=== PATIENT | male | born 1975 | race Two or more races ===

== ENCOUNTER 2019-06-22 12:22 | Emergency (ER) | payer OTHER ==
[~2019-06-22] VITALS: Ht 160 cm; Wt 98.0 kg
--- NOTE | 2019-06-22 12:32 | NUR ---
SERENA LYNN 38 From Home "Was in last couple days for rectal bleed Recently discharged today while going to [facility]- felt weak/near fainting/dizzy" pt awake, alert,. -sob noted, vss, pending md [facility]
[2019-06-22] MEDS ORDERED: IV NS 0.9% 1,000 ML BAG IV ONE (13:30)
[2019-06-22 13:46] LABS: BASOPHILS # (AUTO) 0.1 /CMM (0.0-0.2); BASOPHILS % (AUTO) 0.6 % (0.0-2.0); MEAN CORPUSCULAR HGB CONC 33 g/dl (31.0-36.0); MONOCYTES # (AUTO) 0.5 /CMM (0.1-1.30); NEUTROPHILS # (AUTO) 7.4 /CMM (1.8-8.9); PLATELET COUNT (AUTO) 183 /CMM (150-450)
[2019-06-22 13:48] LABS: EOSINOPHILS % (AUTO) 0.3 % (0.0-6.0); LYMPHOCYTES # (AUTO) 1.8 /CMM (0.8-4.8); LYMPHOCYTES % (AUTO) 18.5 % (20.0-44.0); MEAN CORPUSCULAR VOLUME 93 fL (80-96); MONOCYTES % (AUTO) 4.7 % (2.0-12.0); NEUTROPHILS % (AUTO) 75.9 % (43.0-81.0); RED BLOOD CELL COUNT(AUTO) 2.17 MIL/uL (4.5-6.0); WHITE BLOOD COUNT (AUTO) 9.8 K/uL (4.3-11.0)
[2019-06-22 13:49] LABS: HEMATOCRIT 20 % (39-51)
[2019-06-22 13:50] LABS: HEMOGLOBIN 6.7 g/dL (13.5-17.5)
[2019-06-22 13:53] LABS: CALCIUM, SERUM 7.7 mg/dL (8.5-10.1); CREATININE 0.9 mg/dL (0.6-1.3); POTASSIUM 4.4 mmol/L (3.5-5.1)
[2019-06-22 13:59] LABS: ALBUMIN 2.8 g/dL (3.4-5.0); BILIRUBIN,TOTAL 0.3 mg/dL (0.2-1.0); TOTAL PROTEIN, SERUM 5.6 g/dL (6.4-8.2)
--- NOTE | 2019-06-22 14:46 | NUR ---
DR. BELL CALLED FROM [facility]. PT WILL BE TRANSFERED. AUTHORIZATION NUMBER [phone].
[2019-06-22 15:14] LABS: EOSINOPHILS % (MANUAL) 1 % (0-4); LYMPHOCYTES % (MANUAL) 22 % (16-48); MONOCYTES % (MANUAL) 3 % (0-11.0); NEUTROPHILS % (MANUAL) 74 (42-76)
--- NOTE | 2019-06-22 16:43 | NUR ---
[facility] CALLED. PT WILL BE GOING TO [facility] ROOM 5109-A. NUMBER FOR REPORT [phone]. DR. KEITH ACCEPTING. SEND CHART, LABS, CD. CCT RN ETA [phone] WITH [facility].
--- NOTE | 2019-06-22 16:55 | NUR ---
[facility] nurse called regarding pt, per nurse, pt has to have blood transfusing before he can be accepted at [facility]
--- NOTE | 2019-06-22 16:57 | NUR ---
2nd type and screen drawn, sent to lab
[2019-06-22 17:40] VITALS: BP 128/70
--- NOTE | 2019-06-22 17:50 | NUR ---
report given to rudi marin for lizeth nurse at [facility]
--- NOTE | 2019-06-22 18:14 | NUR ---
[facility] transport here to [place], report given to nurse
== END 2019-06-22 18:33 | disposition short-term general hospital (02) ==
LOC: ER 12:23
DX: D64.9 Anemia, unspecified (principal); R42 Dizziness and giddiness; E78.00 Pure hypercholesterolemia, unspecified; R00.0 Tachycardia, unspecified
CPT/HCPCS: 36415; 80053; 85025; 85730; 86850; 86921; 93005; 96360; 99285; J7030; J7050; P9016